=== PATIENT | male | born 1980 | race Caucasian/White ===

== ENCOUNTER 2016-03-23 13:09 | Emergency (ER) | payer OTHER ==
[~2016-03-23] VITALS: Ht 177.8 cm; Wt 88.5 kg
[~2016-03-23 13:09] MED LIST: ADVIL,NUPRIN,M200 MG PO; AUGMENTIN875 MG PO; BENTYL20 MG PO; IBUPROFEN IB200 MG PO; IMODIUM MS REL1 EACH PO; NOHOMEMEDS; PREDNISONE10 M1 PO; PRILOSEC10 MG PO; ZOFRAN4 MG PO
[2016-03-23 14:01] LABS: POINT-OF-CARE METER ID UU13113778
[2016-03-23 15:03] LABS: MCH 28.5 PG (29.0-34.0); MCHC 34.8 G/DL (30.0-36.0); MCV 82.1 FL (86-99); MEAN PLAT.VOLUME 9.8 uM^3 (9.0-12.4); PLATELET COUNT 258 K/uL (156-360); RBC DIS.WIDTH-CV 12.7 % (11.8-14.6); RBC DIS.WIDTH-SD 37.7 % (39-53); RED BLOOD COUNT 5.36 M/uL (4.00-5.50); WHITE BLOOD COUNT 8.1 K/uL (4.1-10.2)
[2016-03-23 15:13] LABS: CHLORIDE 104 mEq/L (99-109); POTASSIUM 4.2 mEq/L (3.7-5.4); SODIUM 140 mEq/L (136-147)
[2016-03-23 15:15] LABS: GLUCOSE 98 mg/dL (70-99)
[2016-03-23 15:17] LABS: ANION GAP 8 MEQ/L (2-14)
[2016-03-23 15:19] LABS: GFR ESTIMATE (CALCULATED) > 59 mL/min/
[2016-03-23 15:20] LABS: UREA NITROGEN (BUN) 14 mg/dL (9-23)
[2016-03-23] MEDS ORDERED: NAPROSYN500 MG PO (16:22)
[2016-03-23] MEDS ORDERED: MUCUS ER600 MG PO (16:22)
[2016-03-23] MEDS ORDERED: FLONASE16 G1 BOTH NARES (16:22)
[2016-03-23 16:56] VITALS: BP 131/99
== END 2016-03-23 16:57 | disposition home or self-care (01) ==
LOC: EME 13:09
DX: R42 Dizziness and giddiness (principal); R51 Headache; R03.0 Elevated blood-pressure reading, without diagnosis of hypertension; H93.8X3 Other specified disorders of ear, bilateral
CPT/HCPCS: 71020; 80048; 82948; 85027; 93005; 99281; 99284

== ENCOUNTER 2016-06-23 15:12 | Emergency (ER) | payer OTHER ==
[~2016-06-23] VITALS: Ht 175.3 cm; Wt 84.3 kg
[~2016-06-23 15:12] MED LIST changes: +FLONASE16 G1 BOTH NARES; +MUCUS ER600 MG PO; +NAPROSYN500 MG PO
[2016-06-23] MEDS ORDERED: CLEOCIN300 MG PO (15:59)
[2016-06-23 16:19] VITALS: BP 130/90
== END 2016-06-23 16:20 | disposition home or self-care (01) ==
LOC: EME 15:12
DX: K02.9 Dental caries, unspecified (principal)
CPT/HCPCS: 99281; 99283

== ENCOUNTER 2016-07-31 16:16 | Emergency (ER) | payer OTHER ==
[~2016-07-31 16:16] MED LIST changes: +CLEOCIN300 MG PO
== END 2016-07-31 17:28 | disposition left against medical advice (07) ==
LOC: EME 16:16
DX: Z53.21 Procedure and treatment not carried out due to patient leaving prior to being seen by health care provider (principal)

== ENCOUNTER 2016-09-21 02:22 | Emergency (ER) | payer OTHER ==
[~2016-09-21] VITALS: Ht 175.3 cm; Wt 84.1 kg
[2016-09-21 03:42] LABS: HEMATOCRIT 45.3 % (38.0-50.0); MCHC 33.6 G/DL (30.0-36.0); MCV 83.6 FL (86-99); MEAN PLAT.VOLUME 9.7 uM^3 (9.0-12.4); PLATELET COUNT 245 K/uL (156-360); RED BLOOD COUNT 5.42 M/uL (4.00-5.50)
[2016-09-21 03:52] LABS: CHLORIDE 104 mEq/L (99-109); POTASSIUM 3.6 mEq/L (3.7-5.4); SODIUM 142 mEq/L (136-147)
[2016-09-21 03:54] LABS: GLUCOSE 116 mg/dL (70-99)
[2016-09-21 03:55] LABS: ANION GAP 11 MEQ/L (2-14)
[2016-09-21 03:58] LABS: GFR ESTIMATE (CALCULATED) > 59 mL/min/
[2016-09-21 03:59] LABS: UREA NITROGEN (BUN) 11 mg/dL (9-23)
[2016-09-21 04:00] LABS: CREATINE KINASE 124 IU/L (1-294)
[2016-09-21 04:36] VITALS: BP 120/92
== END 2016-09-21 04:38 | disposition home or self-care (01) ==
LOC: EME 02:22
PROVIDERS: Physician Assistant
DX: R53.83 Other fatigue (principal); I10 Essential (primary) hypertension
CPT/HCPCS: 80048; 82550; 85027; 93005; 99281; 99284

== ENCOUNTER 2016-10-06 07:28 | Emergency (ER) | payer OTHER ==
[~2016-10-06] VITALS: Ht 175.3 cm; Wt 83.1 kg
[2016-10-06 08:39] LABS: HEMATOCRIT 42.4 % (38.0-50.0); MCH 27.9 PG (29.0-34.0); MCHC 33.7 G/DL (30.0-36.0); MCV 82.7 FL (86-99); PLATELET COUNT 204 K/uL (156-360); RBC DIS.WIDTH-CV 12.6 % (11.8-14.6); RBC DIS.WIDTH-SD 37.9 % (39-53); RED BLOOD COUNT 5.13 M/uL (4.00-5.50); WHITE BLOOD COUNT 6.8 K/uL (4.1-10.2)
[2016-10-06 08:50] LABS: CHLORIDE 106 mEq/L (99-109); POTASSIUM 4.4 mEq/L (3.7-5.4); SODIUM 142 mEq/L (136-147)
[2016-10-06 08:52] LABS: GLUCOSE 103 mg/dL (70-99)
[2016-10-06 08:53] LABS: ANION GAP 8 MEQ/L (2-14)
[2016-10-06 08:56] LABS: GFR ESTIMATE (CALCULATED) > 59 mL/min/; UREA NITROGEN (BUN) 8 mg/dL (9-23)
[2016-10-06 09:11] LABS: INFLUENZA A VIRAL ANTIGEN NEGATIVE; INFLUENZA B VIRAL ANTIGEN NEGATIVE
[2016-10-06] MEDS ORDERED: ZOFRAN ODT4 MG PO (09:15)
[2016-10-06 09:22] VITALS: BP 103/82
== END 2016-10-06 09:23 | disposition home or self-care (01) ==
LOC: EME 07:28
PROVIDERS: Nurse Practitioner Family
DX: B34.9 Viral infection, unspecified (principal); J02.9 Acute pharyngitis, unspecified; R11.2 Nausea with vomiting, unspecified
CPT/HCPCS: 80048; 85027; 87502; 87651 90; 99281; 99283

== ENCOUNTER 2016-10-29 05:33 | Emergency (ER) | payer OTHER ==
[~2016-10-29] VITALS: Ht 175.3 cm; Wt 80.6 kg
[~2016-10-29 05:33] MED LIST changes: +ZOFRAN ODT4 MG PO
[2016-10-29] MEDS ORDERED: ULTRAM50 MG PO (05:59)
[2016-10-29] MEDS ORDERED: CLEOCIN300 MG PO (05:59)
[2016-10-29] MEDS ORDERED: METOPROLOL TART25 MG PO (06:13)
[2016-10-29 06:32] VITALS: BP 128/63
== END 2016-10-29 06:34 | disposition home or self-care (01) ==
LOC: EME 05:33
DX: K02.9 Dental caries, unspecified (principal); K05.00 Acute gingivitis, plaque induced; I10 Essential (primary) hypertension
CPT/HCPCS: 99281; 99284

== ENCOUNTER 2017-03-01 07:49 | Emergency (ER) | payer OTHER ==
[~2017-03-01] VITALS: Ht 177.8 cm; Wt 81.3 kg
[~2017-03-01 07:49] MED LIST changes: +METOPROLOL TART25 MG PO; +ULTRAM50 MG PO
[2017-03-01 07:53] VITALS: BP 143/93
[2017-03-02] MEDS ORDERED: CEPACOL SORE T1 EAC9 MM (16:57)
[2017-03-02] MEDS ORDERED: MOTRIN600 MG PO (16:57)
[2017-03-02] MEDS ORDERED: TESSALON200 MG PO (17:05)
== END 2017-03-01 11:51 | disposition left against medical advice (07) ==
LOC: EME 07:49
DX: J11.1 Influenza due to unidentified influenza virus with other respiratory manifestations (principal); Z53.21 Procedure and treatment not carried out due to patient leaving prior to being seen by health care provider
CPT/HCPCS: 99281

== ENCOUNTER 2017-03-02 14:29 | Emergency (ER) | payer OTHER ==
[~2017-03-02] VITALS: Ht 175.3 cm; Wt 79.8 kg
[2017-03-02] MEDS ORDERED: MOTRIN600 MG PO (16:57)
[2017-03-02] MEDS ORDERED: CEPACOL SORE T1 EAC9 MM (16:57)
[2017-03-02] MEDS ORDERED: TESSALON200 MG PO (17:05)
[2017-03-02 17:44] VITALS: BP 149/96
== END 2017-03-02 17:45 | disposition home or self-care (01) ==
LOC: EME 14:29
DX: J11.1 Influenza due to unidentified influenza virus with other respiratory manifestations (principal); I10 Essential (primary) hypertension; Z88.0 Allergy status to penicillin
CPT/HCPCS: 99281; 99284

== ENCOUNTER 2017-06-16 23:47 | Emergency (ER) | payer OTHER ==
[~2017-06-16] VITALS: Ht 175.3 cm; Wt 80.9 kg
[~2017-06-16 23:47] MED LIST changes: +CEPACOL SORE T1 EAC9 MM; +MOTRIN600 MG PO; +TESSALON200 MG PO
[2017-06-17] MEDS ORDERED: MOTRIN800 MG PO (01:30)
[2017-06-17 01:36] VITALS: BP 115/80
== END 2017-06-17 01:38 | disposition home or self-care (01) ==
LOC: EME 23:47
DX: S90.02XA Contusion of left ankle, initial encounter (principal); S90.01XA Contusion of right ankle, initial encounter; W23.0XXA Caught, crushed, jammed, or pinched between moving objects, initial encounter; Y92.63 Factory as the place of occurrence of the external cause; Y99.0 Civilian activity done for income or pay; I10 Essential (primary) hypertension; F41.9 Anxiety disorder, unspecified; F17.200 Nicotine dependence, unspecified, uncomplicated; Z88.0 Allergy status to penicillin
CPT/HCPCS: 73590; 99281; 99283

== ENCOUNTER 2017-10-03 08:43 | Emergency (ER) | payer OTHER ==
[~2017-10-03] VITALS: Ht 175.3 cm; Wt 84.6 kg
[~2017-10-03 08:43] MED LIST changes: +MOTRIN800 MG PO
[2017-10-03 10:30] LABS: HEMATOCRIT 43.3 % (38.0-50.0); HEMOGLOBIN 14.9 G/DL (12.5-16.6); MCH 28.6 PG (29.0-34.0); MCHC 34.4 G/DL (30.0-36.0); MCV 83.1 FL (86-99); PLATELET COUNT 251 K/uL (156-360); RBC DIS.WIDTH-CV 12.9 % (11.8-14.6); RBC DIS.WIDTH-SD 38.6 % (39-53); RED BLOOD COUNT 5.21 M/uL (4.00-5.50); WHITE BLOOD COUNT 7.5 K/uL (4.1-10.2)
[2017-10-03 10:41] LABS: CHLORIDE 106 mEq/L (99-109); POTASSIUM 4.7 mEq/L (3.7-5.4); SODIUM 139 mEq/L (136-147)
[2017-10-03 10:43] LABS: GLUCOSE 109 mg/dL (70-99)
[2017-10-03 10:47] LABS: CREATININE 0.9 mg/dL (0.6-1.3); GFR ESTIMATE (CALCULATED) > 59 mL/min/ (58.99-99999)
[2017-10-03 10:48] LABS: UREA NITROGEN (BUN) 12 mg/dL (9-23)
[2017-10-03 10:54] LABS: TROP-I INTERPRETATION NEGATIVE; TROPONIN-I < 0.01 ng/mL (0.0-0.30)
[2017-10-03 13:05] VITALS: BP 118/89
== END 2017-10-03 13:06 | disposition home or self-care (01) ==
LOC: EME 08:43
PROVIDERS: Nurse Practitioner Family
DX: R07.89 Other chest pain (principal); R00.2 Palpitations; I49.3 Ventricular premature depolarization; I10 Essential (primary) hypertension; Z88.0 Allergy status to penicillin
CPT/HCPCS: 71046; 80048; 84484; 85027; 93005; 99281; 99284

== ENCOUNTER 2017-10-13 09:08 | Emergency (ER) | payer OTHER ==
[~2017-10-13] VITALS: Ht 175.3 cm; Wt 81.0 kg
[2017-10-13] MEDS ORDERED: MOTRIN800 MG PO (09:23)
[2017-10-13 09:38] VITALS: BP 152/98
== END 2017-10-13 09:38 | disposition home or self-care (01) ==
LOC: EME 09:08
DX: M65.822 Other synovitis and tenosynovitis, left upper arm (principal); S46.912A Strain of unspecified muscle, fascia and tendon at shoulder and upper arm level, left arm, initial encounter; X50.0XXA Overexertion from strenuous movement or load, initial encounter; Y93.89 Activity, other specified; Y99.0 Civilian activity done for income or pay; Z88.0 Allergy status to penicillin
CPT/HCPCS: 99281; 99283